=== PATIENT | male | born 1990 | race Caucasian/White ===

== ENCOUNTER 2022-01-31 11:44 | Emergency (ER) | payer OTHER, SELFPAY ==
[2022-01-31] VITALS (7 sets, daily range): BP systolic 113–129; BP diastolic 59–85; PULSE 56–70; RESP 14–20; O2SAT 94–99
--- NOTE | ~2022-01-31 | XR_ITS ---
EXAMINATION: XR SHOULDER, RIGHT CLINICAL INFORMATION: Medial dislocation humeral head with respect to glenoid. Follow-up post reduction. COMPARISON: Single portable frontal view right shoulder 01/31/2022. TECHNIQUE: The right shoulder is imaged in a single portable frontal view. FINDINGS: The humeral head overlies the glenoid fossa on this single frontal view. The acromioclavicular alignment is normal. No visible fracture. There is no anterior dislocation. The single view is inadequate to assess for a rare posterior dislocation. Right lung apex appears clear. XR/XR shoulder RT 1V IMPRESSION: Humeral head overlies glenoid fossa on single portable frontal view.
--- NOTE | ~2022-01-31 | XR_ITS ---
EXAMINATION: XR SHOULDER, RIGHT CLINICAL INFORMATION: Dislocation COMPARISON: None TECHNIQUE: One view of the right shoulder. FINDINGS: Limited evaluation on the single frontal projection, with the patient atypically positioned/rotated. The proximal humeral head is projected medially/overlapping with the glenoid, indicative of dislocation. No acute fractures evident on this limited view. XR/XR shoulder RT min 2V IMPRESSION: Limited evaluation on the single radiograph. There appears to be medial dislocation of the proximal humeral head with respect to glenoid.
--- NOTE | 2022-01-31 11:47 | ED_ITS ---
HPI - General Adult General Chief complaint: Extremity Injury, Upper Stated complaint: shoulder popped out Time Seen by Provider: 01/31/22 11:47 Source: patient Mode of arrival: ambulatory Limitations: no limitations History of Present Illness HPI narrative: 31-year-old male with a prior history of right shoulder dislocations, previously managed with PT,?presenting to the emergency department with a right shoulder dislocation. Patient states he was trying to start his parent's lawnmower when his right shoulder popped out . He reports this is the 11th or 12th time this has happened. Patient endorses mild pain. He denies fever, chills, headache, lightheadedness, dizziness, vision changes, chest pain, shortness of breath, cough, wheezing, nausea, vomiting, diarrhea, and abdominal pain. Onset (ago): minute(s) Location: right and upper extremity Radiation: non-radiation Severity: mild Severity scale (1-10): 3 Quality: aching Pain Consistency: constant Relieving factors: none Exacerbating factors: none Associated symptoms: denies other symptoms Treatments prior to arrival: none Related Data Allergies Allergy/AdvReac Type Severity Reaction Status Date / Time amoxicillin Allergy unknown Verified 01/31/22 11:49 Review of Systems Constitutional: Constitutional: Reports no additional constitutional complaints, Denies chills, Denies fever(s) and Denies night sweats Eyes: Eyes: Reports no additional eye complaints, Denies blurry vision, Denies change in vision, Denies diplopia, Denies eye discharge, Denies loss of vision and Denies eye pain ENT: Denies dizziness Cardiovascular: Cardiovascular: Reports no additional cardiovascular c omplaints, Denies chest pain, Denies lightheadedness, Denies Loss of Consciousness and Denies dyspnea Respiratory: Respiratory: Reports no additional respiratory complaints and Denies dyspnea Gastrointestinal: Gastrointestinal: Reports no additional gastrointestinal complaints, Denies abdominal pain, Denies melena, Denies hematochezia, Denies change in bowel habits and Denies change in stool character Genitourinary: Genitourinary: Reports no additional male genitourinary complaints, Denies hematuria, Denies oliguria, Denies difficulty urinating, Denies dysuria, Denies urinary frequency, Denies urinary hesitancy, Denies urinary incontinence and Denies urinary urgency Musculoskeletal: Musculoskeletal: Reports deformity (drooping of the right shoulder), Reports arthralgias (right shoulder pain), Denies numbness and Denies tingling Neurologic: Denies dizziness, Denies loss of vision, Denies numbness and Denies tingling Psychiatric: Psychiatric: Reports no additional psychiatric complaints Endocrine: Endocrine: Reports no additional endocrine complaints Hematologic/Lymphatic: Hematologic/Lymphatic: Reports no additional hematologic/lymphatic complaints Allergic/Immunologic: Allergic/Immunologic: Reports no additional allergic/immunologic complaints [facility] Past Medical History Attestation statement: The following information was validated with the patient. Source: old records reviewed Social History Social History Advance Directives: No Advance Directives Information Provided: No Physical Exam ED Vital Signs: Vital Signs - 24 hr 01/31/22 11:50 01/31/22 12:29 01/31/22 12:33 Pulse Rate 70 61 56 Respiratory Rate 20 16 14 Blood Pressure 126/76 129/78 118/59 L Pulse Oximetry 99 98 98 Oxygen Delivery Method Room Air Oxygen Flow Rate 01/31/22 12:40 01/31/22 12:42 01/31/22 12:46 Pulse Rate 57 66 68 Respiratory Rate 16 15 14 Blood Pressure 127/85 125/80 Pulse Oximetry 97 98 Oxygen Delivery Method Nasal Cannula Room Air Oxygen Flow Rate 2 01/31/22 12:39 Pulse Rate 61 Respiratory Rate 16 Blood Pressure 113/72 Pulse Oximetry 94 Oxygen Delivery Method Oxygen Flow Rate Const General: cooperative, no acute distress, alert and awake Nutritional Appearance: well nourished Orientation/consciousness: patient oriented x3 Limitations: no limitations [facility] Head: Yes normal to inspection and Yes atraumatic Ears: hearing grossly normal bilaterally and external ears normal General nose exam: Normal external nose present, no nasal discharge noted and no epistaxis Face and sinus: Yes normal facial exam, No abrasion and No laceration Mouth: Normal oral and palatal mucosa present, no drooling and no muffled voice Eyes General: appearance normal, both eyes and all related structures Periorbital: periorbital findings normal Eyelids: Yes eyelids normal Conjunctivae: conjunctivae normal Pupils: Equal, round and reactive pupils present EOM: EOMs intact bilaterally Neck Neck: Yes normal visual inspection, Yes full ROM and Yes no lymphadenopathy Chest Chest palpation & inspection: normal inspection of the chest Resp Effort & Inspection: normal respiratory effort and able to speak in complete sentences Auscultation: clear to auscultation bilaterally Cardio Rate: regular rate Rhythm: regular rhythm GI Inspection: Yes normal to inspection Neuro General: patient oriented x3 and moves all extremities Cranial nerves: Yes Equal, round and reactive pupils present Cognition (Neuro): normal cognition Motor exam (neuro): 5/5 motor strength present throughout Sensory Exam: Normal double simultaneous stimulation for sensation Coordination: [id number] test normal Extrem Other: Right shoulder dislocation General: Yes capillary refill normal Right upper extremity: normal capillary refill and shoulder/upper arm Psych Appearance: grossly normal Mental Status: mental status grossly normal Affect: normal affect Attitude: cooperative Thought process: Normal thought process present Thought content: Normal thought content present Insight: Good insight present (Psych) Procedures Orthopedic Joint Reduction Joint #1: Time Out Performed: Yes Side: right Joint Reduction Location: shoulder Analgesia: procedural sedation Shoulder Technique Used (if applicable): traction/counter-traction Technique used: traction/counter-traction Post-reduction neuro exam: intact Post-reduction vascular: intact Post Reduction X-Ray Obtained: Yes Post Reduction X-Ray Results: reduced Splint Applied: Yes Patient Tolerated Procedure: well Orthopedic Splinting/Casting Injury #1: Side: right Upper Extremity Injury Location: shoulder Upper Extremity Immobilizer: sling/shoulder immobilizer Procedural Sedation Indication: fracture/dislocation reduction ASA Class: I Mallampati Class: II Time of Last PO Intake: 10:00 Preparation: compliance monitor applied, pulse oximeter, capnometry used, supplemental O2 applied, suction/airway equipment at bedside and IV secured Fentanyl: IV Fentanyl dose (mcg): 50 IV Propofol dose (mg): 100 Patient Tolerated Procedure: well Complications: none Medical Decision Making MDM Narrative Medical decision making narrative: Patient is a 31 year old male presenting to the emergency department today with right shoulder pain. Patient's physical exam showed an obviously dislocated right shoulder with normal cap refill, sensation, and strength. Patient's right shoulder x-ray showed an acute dislocation. I explained my physical exam findings as well as all test results to the patient. I answered all questions asked by the patient. Patient was placed under conscious sedation by myself and Dr. Parker and his right shoulder dislocation was reduced, without incident. Patient's post-reduction x-ray showed anatomical alignment of the right shoulder. Patient was placed in a sling, without incident. Patient''s ROM, circulation, strength, and sensation were present prior to and after the procedure. I stressed the importance of the patient taking his medication as prescribed. I stressed the importance of the patient following up with his primary care provider and an orthopedic provider. I stressed the importance of the patient returning to the emergency department immediately if his symptoms were to worsen or if he were to develop any dizziness, shortness of breath, difficulty breathing, chest pain, blurry vision, loss of vision, nausea, vomiting, abdominal pain, fever, chills, back pain, or any other complaints. Patient verbalized agreement and understanding with this treatment plan and discharge. Differential Diagnosis Differential Diagnosis: shoulder dislocation Medical Records Medical records reviewed: Yes I reviewed the patient's medical records. Imaging Data Right shoulder x-ray: Attestation: I personally reviewed and interpreted this imaging study as follows: My impression: Dislocation. Radiologist's impression: EXAMINATION: XR SHOULDER, RIGHT CLINICAL INFORMATION: Dislocation? COMPARISON: None? TECHNIQUE: One view of the right shoulder. FINDINGS: Limited evaluation on the single frontal projection, with the patient atypically positioned/rotated. The proximal humeral head is projected medially/overlapping with the glenoid, indicative of dislocation. No acute fractures evident on this limited view. XR/XR shoulder RT min 2V IMPRESSION: Limited evaluation on the single radiograph. There appears to be medial dislocation of the proximal humeral head with respect to glenoid. Dictated By: Antonio Lara MD Signed By: Electronically signed by Antonio Lara MD 01/31/22 1247 Post-reduction right shoulder x-ray: Attestation: I personally reviewed and interpreted this imaging study as follows: My impression: Improved anatomical alignment of the shoulder joint. Radiologist's impression: EXAMINATION: XR SHOULDER, RIGHT CLINICAL INFORMATION: Medial dislocation humeral head with respect to glenoid. Follow-up post reduction.? COMPARISON: Single portable frontal view right shoulder 01/31/2022.? TECHNIQUE: The right shoulder is imaged in a single portable frontal view. FINDINGS: The humeral head overlies the glenoid fossa on this single frontal view. The acromioclavicular alignment is normal. No visible fracture. There is no anterior dislocation. The single view is inadequate to assess for a rare posterior dislocation. Right lung apex appears clear. XR/XR shoulder RT 1V IMPRESSION: Humeral head overlies glenoid fossa on single portable frontal view. Dictated By: Issac Dallas MD Signed By: Electronically signed by Issac Dallas MD 01/31/22 1355 Critical Care Time Critical Care Time Critical Care Time: Yes Total Critical Care Time: 30 Attestation: I spent 30 minutes of Critical Care Time with this patient. This does not include time spent on separately reported billable procedures. Discharge Plan Discharge Clinical Impression: Dislocation of shoulder region Patient Disposition: Home, Self-Care Instructions: Shoulder Dislocation (ED) Additional Instructions: Follow up with your primary care provider and an orthopedist. Return to the emergency department immediately if your symptoms worsen or if you develop any dizziness, shortness of breath, difficulty breathing, chest pain, blurry vision, loss of vision, nausea, vomiting, abdominal pain, fever, chills, back pain, or any other complaints. Referrals: [facility] [Provider Group] (Call to establish and follow up with a primary care provider. If you already have a primary care provider, please follow up with them. ) [facility], [facility] [Provider Group] (Call to establish and follow up with a primary care provider. If you already have a primary care provider, plea se follow up with them. ) [facility] [Provider Group] (Call to establish and follow up with a primary care provider. If you already have a primary care provider, please follow up with them. ) [facility] [Provider Group] (Call to establish and follow up with an irrigation installation specialist.) Stand Alone Forms: Work/School Release Interventions: ED Discharge Assessment Last Done: 01/31/22 13:50 Discharge Date/Time: 01/31/22 13:51 Print Language: [place]
[2022-01-31] MEDS: HYDROcodone Bit/Acetam 5/325 TABLET 1 TAB PO (11:53)
[2022-01-31] MEDS: fentaNYL citrate/PF 100 MCG/2 ML VIAL 50 MCG IVPUSH (12:25)
[2022-01-31] MEDS: propofoL 200 MG/20 ML VIAL IVPUSH (12:52)
== END 2022-01-31 13:51 | disposition home or self-care (01) ==
PROVIDERS: Emergency Provider Emergency Medicine Emergency Medical Services
DX: S43.004A Unspecified dislocation of right shoulder joint, initial encounter (principal); X50.3XXA Overexertion from repetitive movements, initial encounter; Y93.H2 Activity, gardening and landscaping; Y92.017 Garden or yard in single-family (private) house as the place of occurrence of the external cause; Y99.9 Unspecified external cause status
CPT/HCPCS: 23655; 73020; 73030; 99152; 99282; 99285; J3010